=== PATIENT | male | born 1985 | race Caucasian/White ===

== ENCOUNTER 2018-12-08 18:53 | Emergency (ER) | payer OTHER ==
[~2018-12-08] VITALS: Ht 188 cm; Wt 78.0 kg
[2018-12-08] MEDS ORDERED: BACITRACIN 0.9 GM PACKET OINTMENT TP ONE (20:30)
[2018-12-08] MEDS ORDERED: LIDOCAINE 1% 10 ML VIAL INJ ONE (20:30)
[2018-12-08] MEDS ORDERED: POVIDONE-IODINE 10% 15 ML SOLUTION UD TP ONE (20:30)
[2018-12-08] MEDS ORDERED: HYDROCODONE/ACETAMINOPHEN 5-325 MG TABLET PO ONE (20:45)
[2018-12-08 21:15] VITALS: BP 110/86
[2018-12-08] MEDS ORDERED: PERTUSS(ACELL),DIPH,TET VAC/PF 0.5 ML VIAL IM ONE (22:00)
== END 2018-12-08 22:10 | disposition home or self-care (01) ==
LOC: EMS 18:56
DX: S01.81XA Laceration without foreign body of other part of head, initial encounter (principal); S60.512A Abrasion of left hand, initial encounter; S80.811A Abrasion, right lower leg, initial encounter; S80.812A Abrasion, left lower leg, initial encounter; W05.1XXA Fall from non-moving nonmotorized scooter, initial encounter; Y93.89 Activity, other specified; Y92.89 Other specified places as the place of occurrence of the external cause; Y99.8 Other external cause status
CPT/HCPCS: 12011; 99283; J3490; 12002